=== PATIENT | male | born 1960 | race Caucasian/White ===

== ENCOUNTER 2023-04-09 11:15 | Outpatient (RCR) | payer OTHER, SELFPAY | END 2023-04-09 23:59 | disposition home or self-care (01) | LOC: CRHB 11:15 | PROVIDERS: ATTENDING PHYSICIAN Internal Medicine | DX: I25.10 Atherosclerotic heart disease of native coronary artery without angina pectoris (principal); Z95.5 Presence of coronary angioplasty implant and graft | CPT/HCPCS: G0422; G0423 ==

== ENCOUNTER 2023-04-13 08:07 | Emergency (ER) | payer OTHER, SELFPAY ==
[2023-04-13 08:10] VITALS: BP 153/85
[2023-04-13] MEDS: PERCOCET 5/325 2 TABLET PO (09:54)
--- NOTE | 2023-04-13 11:22 | ED.GENMED ---
History of Present Illness
General
Chief Complaint: Musculo-Skeletal Complaint
Source: patient and spouse
Exam Limitations: none
Time Seen by Provider: 04/13/23 08:29
Nursing documentation reviewed up to this point in time: agreed with
Travel History
Have you had any contact with someone who has COVID-19?: No
Do you have any symptoms of coronavirus? Fever > 100 degrees, chills, cough, shortness of breath, sore throat, loss of taste or smell, muscle aches, or headache?: No
History of Present Illness
History of Present Illness:
62-year-old male with past ministry of CAD currently on Plavix, hypertension and hyperlipidemia presenting to the emergency department today with concerns of right-sided ankle discomfort mainly to the medial aspect tripping hit by a hockey puck
yesterday. Immediately felt some discomfort to the area but was able to ambulate yesterday this morning woke up with worsening swelling discomfort. Denies any additional injuries no numbness or weakness.
Past History
Past History
ED Past Medical History: Asthma and Hypercholesterolemia
ED Past Surgical History: Orthopedic
Social History
Tobacco: Non-smoker
Personal:
Living: alone
Review of Systems
Review of Systems
Allergies reviewed?: Yes
All Other Systems: ROS reviewed and negative except as documented in HPI and ROS
Phy Exam
Physical Exam
Physical Exam:
GENERAL: Alert , in no apparent distress
EYE: pupils equal and reactive
NECK: Supple, no significant adenopathy.
ENT: o/p clr, mmm.
CARDIAC: Regular rate and rhythm .
LUNGS: Clear breath sounds bilaterally, no acute respiratory distress, no wheezes/rales/rhonchi
ABDOMEN: Soft, without focal tenderness, no r/g, no cvat
NEUROLOGICAL: Alert and oriented, no focal neuro deficits
SKIN: Warm and dry, skin intact.
MUSCULOSKELETAL: Tenderness to palpation as well as swelling to the right sided medial malleolus good range of motion and strength there was moderate swelling to the area no tenderness throughout the day of the tib-fib, knee or foot or midfoot.,
well perfused.
PSYCH: Normal and appropriate interaction.
Course
Orders/Labs/Results
Orders:
Orders
04/13/23 08:16
CR Ankle - Right Min 3 Views * Urgent
Comment:
Reason For Exam: hit with hockey puck
04/13/23 09:48
boot [Ortho Boot Right- Treatment] ONCE
Short or tall?: Short
Oxycodone/Acetaminophen [Percocet 5/325] 2 tablet PO NOW STA
Vital Signs
Initial and Last Documented VS:
Initial Vital Signs
Temp Pulse Resp BP Pulse Ox
97.8 F 82 22 153/85 99
04/13/23 08:10 04/13/23 08:10 04/13/23 08:10 04/13/23 08:10 04/13/23 08:10
Last Documented Vital Signs
Temp Pulse Resp BP Pulse Ox
97.8 F 82 22 153/85 99
04/13/23 08:10 04/13/23 08:10 04/13/23 08:10 04/13/23 08:10 04/13/23 08:10
MDM/Problems Addressed
MDM/Problems Addressed:
62-year-old male presenting to the emergency department after being hit by a hockey puck in his medial malleolus yesterday worsening swelling discomfort this morning yesterday was able to ambulate. Here he has moderate swelling to the area x-ray
was performed without signs of fracture. Patient with likely soft tissue injury. Plan for rest ice compression elevation otherwise stable for outpatient follow-up. Return precautions given.
*Critical Care Note
Total Time (30-74mins, 75-104mins- exclusive of procedures): Not Applicable
ED Attending Note
-
Portions of this chart may have been created with voice recognition software.� Occasional wrong word or��sound alike� substitutions may have occurred due to the inherent limitations of voice recognition software.
Discharge Plan
Departure
Patient Disposition: Home (Routine Discharge)
Date of Disposition: 04/13/23
Time of Disposition: 11:22
Patient with high blood pressure during this ER visit?: No
Condition: Good
Covid-19: Not Applicable
Discharge Problem:
Pain in right ankle
Instructions: Ankle Sprain (DC), Muscle and Bone Pain (DC)
Prescriptions:
New
oxycodone-acetaminophen [Endocet] 5-325 mg tablet
1 tab PO Q6H PRN (Reason: Pain) Qty: 7 0RF
No Action
famotidine 20 MG tablet
20 mg PO HS
loratadine 10 MG tablet
10 mg PO HS
ibuprofen 200 MG tablet
600 mg PO Q6 PRN (Reason: discomfort)
cholecalciferol (vitamin D3) [Vitamin D3] 400 UNITS tablet
50 mcg PO HS
magnesium oxide 400 mg magnesium Tablet
400 mg PO HS
aspirin 81 mg Capsule
100 mg PO DAILY
potassium 99 mg Tablet
99 mg PO PRN PRN (Reason: after heavy exercise)
clopidogrel [clopidogrel] 75 mg tablet
75 mg PO DAILY Qty: 90 3RF
nitroglycerin [nitroglycerin] 0.4 mg tablet, sublingual
0.4 mg sublingual [id number] PRN (Reason: chest pain) Qty: 25 2RF
Rx Instructions:
DO NOT TAKE WITHIN 24 HOURS OF VIAGRA
sildenafil [Viagra] 25 mg Tablet
25 mg PO DAILY PRN (Reason: ED) Qty: 0 0RF
Rx Instructions:
DO NOT TAKE WITHIN 24 HOURS OF NITROGLYCERIN
atorvastatin 40 mg tablet
40 mg PO HS Qty: 90 3RF
Referrals:
Bernie Draper I., DO [Active] - Follow up in 5-7 days
Tati Chester PA-C [Family Provider] -
Activity Restrictions/Additional Instructions:
You came to the emergency department today with concerns of right-sided ankle discomfort. Here you had an x-ray without signs of fracture. This is likely soft tissue injury. Please rest ice compress and elevate over the next few days and take the
pain medication as needed. Please use crutches and take weight off the next few days and otherwise follow-up with orthopedics as needed in the next week or so. Return to the emergency department for any worsening, new or concerning symptoms.
Interventions
Interventions:
*Risk Screen - Suicide Last Done: 04/13/23 09:42
*General Assessment Last Done: 04/13/23 08:12
*Neglect/Abuse Screening Last Done: 04/13/23 09:42
ED- Fall Risk Assessment Last Done: 04/13/23 09:42
*ED COVID-19 Vaccine History Last Done: 04/13/23 08:12
ED-Musculoskeletal Assessment Last Done: 04/13/23 09:42
== END 2023-04-13 11:37 | disposition home or self-care (01) ==
LOC: EMR 08:07
PROVIDERS: EMERGENCY PHYSICIAN Emergency Medicine; FAMILY PHYSICIAN Physician Assistant Medical
DX: M25.571 Pain in right ankle and joints of right foot (principal); M25.471 Effusion, right ankle; W21.220A Struck by ice hockey puck, initial encounter; I25.10 Atherosclerotic heart disease of native coronary artery without angina pectoris; J45.909 Unspecified asthma, uncomplicated; E78.00 Pure hypercholesterolemia, unspecified; I10 Essential (primary) hypertension; Z79.02 Long term (current) use of antithrombotics/antiplatelets; Z87.891 Personal history of nicotine dependence; Z91.048 Other nonmedicinal substance allergy status
CPT/HCPCS: 99283; 29515; 73610

== ENCOUNTER 2023-05-07 09:38 | Outpatient (RCR) | payer OTHER, SELFPAY ==
[2023-04-25 14:27] LABS: HDL Cholesterol 39 mg/dl; LDL Cholesterol, Calculated 108 mg/dl; Total Cholesterol 161 mg/dl (50-199); Triglyceride 71 mg/dl (10-149); Very Low Density Lipoprotein 14 mg/dl (0-30)
== END 2023-05-07 23:59 | disposition home or self-care (01) ==
LOC: CRHB 09:38
PROVIDERS: ATTENDING PHYSICIAN Internal Medicine; FAMILY PHYSICIAN Internal Medicine Cardiovascular Disease
DX: I25.10 Atherosclerotic heart disease of native coronary artery without angina pectoris (principal); Z95.5 Presence of coronary angioplasty implant and graft
CPT/HCPCS: 36415; 80061; G0422; G0423

== ENCOUNTER 2023-05-16 09:57 | Outpatient (RCR) | payer OTHER, SELFPAY ==
[2023-05-20 12:04] LABS: HDL Cholesterol 54 mg/dl; LDL Cholesterol, Calculated 87 mg/dl; Total Cholesterol 156 mg/dl (50-199); Triglyceride 78 mg/dl (10-149); Very Low Density Lipoprotein 15 mg/dl (0-30)
== END 2023-05-16 23:59 | disposition home or self-care (01) ==
LOC: CRHB 09:57
PROVIDERS: ATTENDING PHYSICIAN Internal Medicine; FAMILY PHYSICIAN Internal Medicine Cardiovascular Disease
DX: I25.10 Atherosclerotic heart disease of native coronary artery without angina pectoris (principal); Z95.5 Presence of coronary angioplasty implant and graft
CPT/HCPCS: 36415; 80061; G0422; G0423